=== PATIENT | male | born 1945 | race Caucasian/White ===

== ENCOUNTER → 2016-06-20 | Outpatient (CLI) | payer MEDICARE, BC ==
[2016-06-20 12:38] LABS: ALBUMIN 3.8 GM/DL (3.2-5.2); ALBUMIN/GLOBULIN RATIO 1.27 (1.00-1.93); ALKALINE PHOSPHATASE 68 U/L (45-117); ALT/SGPT 16 U/L (12-78); AST/SGOT 12 U/L (15-37); BILIRUBIN,DIRECT < 0.1 MG/DL (0.0-0.2); BILIRUBIN,TOTAL 0.3 MG/DL (0.2-1.0); CHOLESTEROL LEVEL 210 MG/DL (<200); TOTAL PROTEIN 6.8 GM/DL (6.4-8.2); TRIGLYCERIDES LEVEL 161 MG/DL (<150)
[2016-06-20 19:36] LABS: ANION GAP 8 MEQ/L (8-16); BLOOD UREA NITROGEN 27 MG/DL (7-18); CALCIUM LEVEL 8.5 MG/DL (8.8-10.2); CARBON DIOXIDE LEVEL 26 MEQ/L (21-32); CHLORIDE LEVEL 107 MEQ/L (98-107); CREATININE FOR GFR 1.08 MG/DL (0.70-1.30); GLOMERULAR FILTRATION RATE > 60.0 (>42); GLUCOSE, FASTING 136 MG/DL (83-110); POTASSIUM SERUM 4.2 MEQ/L (3.5-5.1); SODIUM LEVEL 141 MEQ/L (136-145)
== END ==
LOC: M LAB 11:28
PROVIDERS: ATTEND Internal Medicine Cardiovascular Disease
DX: E78.00 Pure hypercholesterolemia, unspecified (principal); I11.9 Hypertensive heart disease without heart failure; R35.1 Nocturia
CPT/HCPCS: 36415; 80061; 80069; 80076; G0103

== ENCOUNTER → 2016-10-19 | Outpatient (CLI) | payer MEDICARE, BC ==
--- NOTE | 2016-10-26 20:26 | SLEEPCENT ---
DATE OF PROCEDURE: 10/19/2016 ORDERED BY: Dr. Edmar Lawrence Nocturnal polysomnography was performed for evaluation of sleep apnea syndrome symptoms in this patient with a history of excessive somnolence. 8 hours and 31 minutes of data were reviewed. There were 323 minutes of sleep identified. Sleep latency was prolonged at 110 minutes. Rapid eye movement (REM) latency was also prolonged at 234 minutes. Sleep architecture initially showed some poor progression. There was some fragmentation. One long REM period was appreciated between 2:45 and 4:15. The EKG showed a sinus rhythm throughout. Occasional unifocal ventricular ectopic beats were seen. Average heart rate 63 beats per minute. EEG showed a fairly normal wave forms for wake and sleep stages. No focal events were identified. There were 31 respiratory events identified of 10 seconds in duration or greater for an apnea-hypopnea index of 5.7. The events were primarily obstructive. More frequent in the prone and supine positions. No clear stage relationship was appreciated. Snoring was also noted particularly early in the study and respiratory related arousal index was 3.9 with significant limb activity, three trains of 30 events and a limb movement arousal index of 7.8. The remaining measures of sleep physiology were normal. IMPRESSION: 1. Mild obstructive sleep apnea syndrome (G47.33). Apnea-hypopnea index 5.7. 2. Mild periodic limb movement disorder (G47.61). Limb movement arousal index is 7.8. RECOMMENDATIONS: Sleep position retraining for avoidance of the supine posture may be helpful to reduce the frequency or respiratory events. If symptoms persist, a return to the sleep disorder center for pressure therapy would be indicated. Given the frequency of limb activity, pending outcome of treatment of respiratory events interventions to reduce the frequency arousal from limb activity may also be helpful.
== END ==
LOC: M SLEEP 19:37
PROVIDERS: ATTEND Internal Medicine Pulmonary Disease
DX: G47.30 Sleep apnea, unspecified (principal); R40.0 Somnolence; I10 Essential (primary) hypertension

== ENCOUNTER → 2017-08-08 | Outpatient (REF) | payer MEDICARE, BC ==
[2017-08-08 12:50] LABS: IRON (FE) 74 UG/DL (65-175); PERCENT SATURATION 15.7 % (19.7-50.0); TOTAL IRON BINDING CAPACITY 471 UG/DL (250-450)
== END ==
LOC: M LAB REF 12:21
DX: D64.9 Anemia, unspecified (principal)
CPT/HCPCS: 83550

== ENCOUNTER → 2019-03-19 | Outpatient (REF) | payer MEDICARE, BC ==
[2019-03-19 13:36] LABS: PERCENT SATURATION 14.9 % (19.7-50.0)
== END ==
LOC: M LAB REF 13:16
PROVIDERS: ATTEND Internal Medicine
DX: D64.9 Anemia, unspecified (principal)

== ENCOUNTER → 2020-02-17 | Outpatient (REF) | payer MEDICARE, BC | LOC: M LAB REF 17:10 | PROVIDERS: ATTEND Physician Assistant | DX: C44.509 Unspecified malignant neoplasm of skin of other part of trunk (principal) ==

== ENCOUNTER → 2021-07-08 | Outpatient (REF) | payer MEDICARE, BC ==
[~2021-07-08] MED LIST: ACTO30TA15 PO; ASPI81TA26 PO; FLOM0.4C39 PO; GABA-282 PO; JANU100T; LIPI20TA PO; LOSA50TA28; METF-838; METO50TA7 PO; PARO25TA11; [UNRECOGNIZED DRUG - CODE] EX
== END ==
LOC: M SFHCDERM 19:03
PROVIDERS: ATTEND Dermatology
DX: C44.509 Unspecified malignant neoplasm of skin of other part of trunk (principal); L40.8 Other psoriasis

== ENCOUNTER 2021-07-27 10:22 | Outpatient (RCR) | payer MEDICARE, BC | END 2021-07-31 | LOC: M ONCR 10:22 | PROVIDERS: ATTEND General Practice | DX: C44.89 Other specified malignant neoplasm of overlapping sites of skin (principal) ==

== ENCOUNTER → 2021-08-31 | Outpatient (RCR) | payer MEDICARE, BC | LOC: M ONCR 08-02 11:16 | PROVIDERS: ATTEND General Practice | DX: C44.89 Other specified malignant neoplasm of overlapping sites of skin (principal) ==

== ENCOUNTER → 2021-09-30 | Outpatient (RCR) | payer MEDICARE, BC | LOC: M ONCR 09-01 08:27 | PROVIDERS: ATTEND General Practice | DX: C44.89 Other specified malignant neoplasm of overlapping sites of skin (principal) ==

== ENCOUNTER 2021-10-12 08:27 | Outpatient (RCR) | payer MEDICARE, BC ==
[~2021-10-12 08:27] MED LIST changes: -JANU100T; +JANU100T PO; +LATA0.0015; -METF-838; +METF-838 PO; +METO1TAB33 PO; +TAMS1CAP17
== END 2021-10-31 ==
LOC: M ONCR 08:27
PROVIDERS: ATTEND General Practice
DX: C44.89 Other specified malignant neoplasm of overlapping sites of skin (principal)

== ENCOUNTER 2021-10-15 06:12 | Day surgery (SDC) | payer MEDICARE, BC ==
[~2021-10-15] VITALS: Ht 167.6 cm; Wt 70.3 kg
[~2021-10-15 06:12] MED LIST changes: +LIDOCAINE W/EPINEPHRINE 1% 20ML VIAL ID ONE; +SODIUM BICARBONATE 8.4% INJ 50MEQ 50 ML VIAL ID ONE
[2021-10-15] MEDS ORDERED: BACITRACIN OINTMENT 30GM TUBE As Ordered ONE (07:09)
[2021-10-15 08:15] VITALS: BP 173/80
== END 2021-10-15 08:40 | disposition home or self-care (01) ==
LOC: M SDC 06:12
PROVIDERS: ATTEND Orthopaedic Surgery Hand Surgery
DX: M65.352 Trigger finger, left little finger (principal)

== ENCOUNTER → 2021-10-22 | Outpatient (CLI) | payer MEDICARE, BC ==
[~2021-10-22] MED LIST changes: -LIDOCAINE W/EPINEPHRINE 1% 20ML VIAL ID ONE; -SODIUM BICARBONATE 8.4% INJ 50MEQ 50 ML VIAL ID ONE
== END ==
LOC: M ONCR 08:48
PROVIDERS: ATTEND General Practice
DX: N50.812 Left testicular pain (principal); L98.8 Other specified disorders of the skin and subcutaneous tissue

== ENCOUNTER 2021-11-04 13:39 | Inpatient (IN) | payer MEDICARE, BC ==
[~2021-11-04] VITALS: Ht 167.6 cm; Wt 70.0 kg
[2021-11-04] VITALS (7 sets, daily range): BP systolic 158–175; BP diastolic 84–91
[~2021-11-04 13:39] MED LIST changes: +LIDOCAINE 1% MDV 20ML VIAL As Ordered ONE; +LIDOCAINE 2% 100MG/5ML SDV (FOR ANES.) As Ordered ONE; -LOSA50TA28; +LOSA50TA28 PO; +MIDAZOLAM INJ 2MG/2ML VIAL (J2250 PER 1MG) As Ordered ONE; -TAMS1CAP17; +TAMS1CAP17 PO; +fentaNYL 100 MCG/2 ML INJECTION As Ordered ONE; +propofoL 200 MG/20 ML VIAL As Ordered ONE
[2021-11-04] MEDS ORDERED: CEPH500C PO (13:55)
[2021-11-04] MEDS ORDERED: OXYC1TAB23 PO (13:55)
[2021-11-04] MEDS ORDERED: ceFAZolin SOD 2 GM in IV 1 EA IV ONE (14:05)
[2021-11-04] MEDS ORDERED: INSULIN LISPRO (NovoLOG) PER UNIT SC PRN (14:15)
[2021-11-04] MEDS ORDERED: LR 1,000 ML IV SCH ×3 (14:15→16:25)
[2021-11-04] MEDS ORDERED: ceFAZolin 2 GM/D5W 50 ML IV BAG (J0690 PER 500MG) As Ordered ONE (14:32)
[2021-11-04] MEDS ORDERED: LABETALOL 100MG/20ML VIAL As Ordered ONE (15:16)
[2021-11-04] MEDS ORDERED: oxyCODONE 5MG TAB PO PRN ×2 (15:30→18:40)
[2021-11-04] MEDS ORDERED: ONDANSETRON 4MG 2ML VIAL IV PRN (15:30)
[2021-11-04] MEDS: fentaNYL 100 MCG/2 ML INJECTION IV PRN ×4 (16:08→16:26)
[2021-11-04] MEDS ORDERED: MOM 30ML SUSPENSION UDC PO PRN (16:45)
[2021-11-04] MEDS ORDERED: ACETAMINOPHEN TAB 650MG DOSE (2X325MG) PO PRN (16:45)
[2021-11-04] MEDS ORDERED: MAALOX 30 ML SUSP *UDC PO PRN (16:45)
[2021-11-04] MEDS ORDERED: VANCOMYCIN HCL 1,000 MG, VIAL MATE ADAPTER 1 EACH in NS 250 ML IV SCH (16:55)
[2021-11-04] MEDS: PIPERACILLIN/TAZOBACTAM SOD 4.5 GM in D5W MINI-BAG PLUS 50 ML IV SCH (18:11)
[2021-11-04] MEDS ORDERED: GLUCOSE 4GM CHEW TABLET PO PRN (18:40)
[2021-11-04] MEDS ORDERED: GLUCAGON INJ 1MG VIAL SC PRN (18:40)
[2021-11-04] MEDS ORDERED: MORPHINE 2 MG/ML 1ML VIAL IV PRN (18:40)
[2021-11-04] MEDS ORDERED: DEXTROSE 50% 50 ML SYRINGE IV PRN (18:40)
[2021-11-04] MEDS ORDERED: PARO25TA11 PO (19:05)
[2021-11-04] MEDS ORDERED: AZOP0.2S OU (19:05)
[2021-11-04] MEDS ORDERED: PIOG1TAB55 PO (19:05)
[2021-11-04] MEDS ORDERED: BRIM1OPD OU (19:05)
[2021-11-04] MEDS ORDERED: TAMS1CAP17 PO (19:05)
[2021-11-04] MEDS ORDERED: ATOR40TA75 PO (19:07)
[2021-11-04] MEDS ORDERED: HOME MED LIST COMPLETE! XX SCH (19:10)
[2021-11-04] MEDS: INSULIN LISPRO (NovoLOG) PER UNIT SC SCH (20:25)
[2021-11-04] MEDS ORDERED: VANCOMYCIN HCL 750 MG, VIAL MATE ADAPTER 1 EACH in D5W 250 ML IV ONE ×2 (21:00→22:00)
[2021-11-04] MEDS ORDERED: MORPHINE 4 MG/ML 1ML VIAL/SYRINGE IV PRN (21:40)
[2021-11-04] MEDS: LOSARTAN 50MG TABLET PO SCH (22:26)
[2021-11-04] MEDS: GABAPENTIN 300 MG CAP PO SCH (22:26)
[2021-11-04] MEDS: ATORVASTATIN 20 MG TAB PO SCH (22:26)
[2021-11-04] MEDS: METOPROLOL SUCC (TopROL XL) 50MG **XL** TAB PO SCH (22:27)
[2021-11-04] MEDS: PARoxetine 25MG CR TAB (PAXIL CR) PO SCH (22:33)
[2021-11-04] MEDS ORDERED: ACETAMINOPHEN 1000MG 100ML IV BTL (OFIRMEV) (J0131 PER 10MG) IV ONE (23:00)
[2021-11-05] MEDS: PIPERACILLIN/TAZOBACTAM SOD 4.5 GM in D5W MINI-BAG PLUS 50 ML IV SCH ×5 (00:53→23:58)
[2021-11-05 02:00] VITALS: BP 163/88
[2021-11-05 06:00] VITALS: BP 124/69
[2021-11-05 07:17] LABS: BASO # 0.1 10^3/uL (0.0-0.2); BASO % 0.8 % (0.0-1.0); EOS # 0.3 10^3/uL (0.0-0.5); EOS % 3.1 % (0.0-3.0); HEMATOCRIT 31.3 % (42.0-52.0); HEMOGLOBIN 10.4 g/dl (13.5-17.5); LYMPH % 10.9 % (24.0-44.0); MEAN CORPUSCULAR HEMOGLOBIN 31.1 pg (27.0-33.0); MEAN CORPUSCULAR HGB CONC 33.2 g/dl (32.0-36.5); MEAN CORPUSCULAR VOLUME 93.7 fl (80.0-96.0); MONO % 10.6 % (2.0-8.0); NEUTROPHILS # 6.7 10^3/uL (1.5-8.5); NEUTROPHILS % 73.9 % (36.0-66.0); PLATELET COUNT, AUTOMATED 339 10^3/uL (150-450); RED BLOOD COUNT 3.34 10^6/uL (4.30-6.10)
[2021-11-05 07:47] LABS: ALBUMIN 2.6 GM/DL (3.2-5.2); ALT/SGPT 19 U/L (12-78); BILIRUBIN,TOTAL 0.3 MG/DL (0.2-1.0); BLOOD UREA NITROGEN 21 MG/DL (7-18); C REACTIVE PROTEIN QUANTITATIV 6.46 MG/DL (0.00-0.30); CALCIUM LEVEL 8.6 MG/DL (8.8-10.2); CARBON DIOXIDE LEVEL 28 MEQ/L (21-32); CHLORIDE LEVEL 101 MEQ/L (98-107); CREATININE FOR GFR 1.15 MG/DL (0.70-1.30); GLOMERULAR FILTRATION RATE > 60.0 (>42); GLUCOSE, FASTING 247 MG/DL (70-100); MAGNESIUM LEVEL 1.7 MG/DL (1.8-2.4); POTASSIUM SERUM 4.2 MEQ/L (3.5-5.1); SODIUM LEVEL 136 MEQ/L (136-145)
[2021-11-05 08:44] LABS: ERYTHROCYTE SEDIMENTATION RATE 67 mm/hr (0-20)
[2021-11-05] MEDS ORDERED: TAMSULOSIN 0.4 MG CAP PO SCH (09:00)
[2021-11-05] MEDS: MAG SULF 1GM/100ML (MAG RUN) 1 GM in IV 1 EA IV SCH ×2 (09:01→10:11)
[2021-11-05] MEDS: ASPIRIN 81MG ENTERIC TABLET PO SCH (09:01)
[2021-11-05] MEDS: PARoxetine 25MG CR TAB (PAXIL CR) PO SCH ×2 (09:01→20:49)
[2021-11-05] MEDS: BRINZOLAMIDE 1% OPHTH SUSP (AZOPT) 10ML OU SCH ×2 (09:03→20:51)
[2021-11-05] MEDS: INSULIN LISPRO (NovoLOG) PER UNIT SC SCH ×4 (09:03→20:29)
[2021-11-05] MEDS: BRIMONIDINE 0.1% OPHTH SOLN 5 ML OU SCH ×2 (09:03→20:51)
[2021-11-05] MEDS: KETOROLAC 30 MG/ML 1ML VIAL IV PRN ×2 (09:04→20:49)
[2021-11-05 10:00] VITALS: BP 130/69
[2021-11-05] MEDS: VANCOMYCIN HCL 500 MG in D5W MINI-BAG PLUS 100 ML IV SCH (11:17)
[2021-11-05] MEDS: VANCOMYCIN HCL 750 MG, VIAL MATE ADAPTER 1 EACH in D5W 250 ML IV SCH (12:21)
[2021-11-05 14:00] VITALS: BP 127/79
[2021-11-05 18:00] VITALS: BP 142/80
[2021-11-05] MEDS: GABAPENTIN 300 MG CAP PO SCH (20:49)
[2021-11-05] MEDS: LOSARTAN 50MG TABLET PO SCH (20:50)
[2021-11-05] MEDS: ATORVASTATIN 20 MG TAB PO SCH (20:50)
[2021-11-05] MEDS: METOPROLOL SUCC (TopROL XL) 50MG **XL** TAB PO SCH (20:50)
[2021-11-05 21:39] VITALS: BP 150/84
[2021-11-06 02:00] VITALS: BP 148/86
[2021-11-06] MEDS: PIPERACILLIN/TAZOBACTAM SOD 4.5 GM in D5W MINI-BAG PLUS 50 ML IV SCH (05:31)
[2021-11-06 06:03] VITALS: BP 170/84
[2021-11-06 06:28] LABS: BASO # 0.1 10^3/uL (0.0-0.2); BASO % 1.2 % (0.0-1.0); EOS # 0.5 10^3/uL (0.0-0.5); EOS % 7.1 % (0.0-3.0); HEMATOCRIT 32.2 % (42.0-52.0); HEMOGLOBIN 10.5 g/dl (13.5-17.5); LYMPH # 1.1 10^3/uL (1.5-5.0); LYMPH % 14.8 % (24.0-44.0); MEAN CORPUSCULAR HEMOGLOBIN 30.2 pg (27.0-33.0); MEAN CORPUSCULAR HGB CONC 32.6 g/dl (32.0-36.5); MEAN CORPUSCULAR VOLUME 92.5 fl (80.0-96.0); MONO # 0.7 10^3/uL (0.0-0.8); MONO % 9.1 % (2.0-8.0); NEUTROPHILS % 67.3 % (36.0-66.0); PLATELET COUNT, AUTOMATED 375 10^3/uL (150-450); RED BLOOD COUNT 3.48 10^6/uL (4.30-6.10); WHITE BLOOD COUNT 7.4 10^3/uL (4.0-10.0)
[2021-11-06 07:00] VITALS: BP 174/92
[2021-11-06 07:07] LABS: ALBUMIN 2.6 GM/DL (3.2-5.2); BILIRUBIN,TOTAL 0.4 MG/DL (0.2-1.0); CALCIUM LEVEL 8.7 MG/DL (8.8-10.2); CREATININE FOR GFR 1.27 MG/DL (0.70-1.30); GLOMERULAR FILTRATION RATE 58.7 (>42); MAGNESIUM LEVEL 2.1 MG/DL (1.8-2.4); POTASSIUM SERUM 4.3 MEQ/L (3.5-5.1)
[2021-11-06 07:12] LABS: ERYTHROCYTE SEDIMENTATION RATE 65 mm/hr (0-20)
[2021-11-06] MEDS ORDERED: amLODIPine 5 MG TAB PO ONE (08:00)
[2021-11-06] MEDS: PARoxetine 25MG CR TAB (PAXIL CR) PO SCH ×2 (08:12→20:28)
[2021-11-06] MEDS: ASPIRIN 81MG ENTERIC TABLET PO SCH (08:12)
[2021-11-06] MEDS: VANCOMYCIN HCL 750 MG, VIAL MATE ADAPTER 1 EACH in D5W 250 ML IV SCH (08:13)
[2021-11-06] MEDS: TAMSULOSIN 0.4 MG CAP PO SCH (08:13)
[2021-11-06] MEDS: INSULIN LISPRO (NovoLOG) PER UNIT SC SCH ×4 (08:13→20:30)
[2021-11-06] MEDS: BRIMONIDINE 0.1% OPHTH SOLN 5 ML OU SCH ×2 (08:20→20:30)
[2021-11-06] MEDS: BRINZOLAMIDE 1% OPHTH SUSP (AZOPT) 10ML OU SCH ×2 (08:20→20:30)
[2021-11-06] MEDS: VANCOMYCIN HCL 500 MG in D5W MINI-BAG PLUS 100 ML IV SCH (09:47)
[2021-11-06 10:43] LABS: VANCOMYCIN RANDOM 12.8 UG/ML
[2021-11-06 14:00] VITALS: BP 136/70
[2021-11-06] MEDS: KETOROLAC 30 MG/ML 1ML VIAL IV PRN (15:50)
[2021-11-06 20:03] VITALS: BP 162/88
[2021-11-06] MEDS: GABAPENTIN 300 MG CAP PO SCH (20:28)
[2021-11-06 20:29] VITALS: BP 162/88
[2021-11-06] MEDS: METOPROLOL SUCC (TopROL XL) 50MG **XL** TAB PO SCH (20:29)
[2021-11-06] MEDS: LOSARTAN 50MG TABLET PO SCH (20:29)
[2021-11-06] MEDS: ATORVASTATIN 20 MG TAB PO SCH (20:30)
[2021-11-07 05:41] VITALS: BP 165/91
[2021-11-07 06:35] LABS: BASO # 0.1 10^3/uL (0.0-0.2); BASO % 1.2 % (0.0-1.0); EOS # 0.5 10^3/uL (0.0-0.5); HEMATOCRIT 31.3 % (42.0-52.0); HEMOGLOBIN 10.5 g/dl (13.5-17.5); LYMPH # 1.3 10^3/uL (1.5-5.0); LYMPH % 19.2 % (24.0-44.0); MEAN CORPUSCULAR HEMOGLOBIN 30.9 pg (27.0-33.0); MEAN CORPUSCULAR HGB CONC 33.5 g/dl (32.0-36.5); MEAN CORPUSCULAR VOLUME 92.1 fl (80.0-96.0); MONO # 0.8 10^3/uL (0.0-0.8); MONO % 12.2 % (2.0-8.0); NEUTROPHILS # 4.1 10^3/uL (1.5-8.5); PLATELET COUNT, AUTOMATED 376 10^3/uL (150-450); WHITE BLOOD COUNT 6.9 10^3/uL (4.0-10.0)
[2021-11-07 06:59] LABS: ERYTHROCYTE SEDIMENTATION RATE 65 mm/hr (0-20)
[2021-11-07 07:13] LABS: ALBUMIN 2.8 GM/DL (3.2-5.2); ALT/SGPT 30 U/L (12-78); BILIRUBIN,TOTAL 0.4 MG/DL (0.2-1.0); BLOOD UREA NITROGEN 24 MG/DL (7-18); C REACTIVE PROTEIN QUANTITATIV 4.88 MG/DL (0.00-0.30); CALCIUM LEVEL 8.4 MG/DL (8.8-10.2); CARBON DIOXIDE LEVEL 26 MEQ/L (21-32); CHLORIDE LEVEL 107 MEQ/L (98-107); CREATININE FOR GFR 1.06 MG/DL (0.70-1.30); GLOMERULAR FILTRATION RATE > 60.0 (>42); GLUCOSE, FASTING 192 MG/DL (70-100); MAGNESIUM LEVEL 1.9 MG/DL (1.8-2.4); POTASSIUM SERUM 4.1 MEQ/L (3.5-5.1); SODIUM LEVEL 140 MEQ/L (136-145); TOTAL PROTEIN 6.3 GM/DL (6.4-8.2)
[2021-11-07] MEDS: PARoxetine 25MG CR TAB (PAXIL CR) PO SCH (08:31)
[2021-11-07] MEDS: ASPIRIN 81MG ENTERIC TABLET PO SCH (08:31)
[2021-11-07] MEDS: TAMSULOSIN 0.4 MG CAP PO SCH (08:32)
[2021-11-07] MEDS: INSULIN LISPRO (NovoLOG) PER UNIT SC SCH ×2 (08:32→12:00)
[2021-11-07] MEDS: VANCOMYCIN HCL 750 MG, VIAL MATE ADAPTER 1 EACH in D5W 250 ML IV SCH (08:32)
[2021-11-07] MEDS: BRIMONIDINE 0.1% OPHTH SOLN 5 ML OU SCH (08:33)
[2021-11-07] MEDS: BRINZOLAMIDE 1% OPHTH SUSP (AZOPT) 10ML OU SCH (08:33)
[2021-11-07] MEDS: VANCOMYCIN HCL 500 MG in D5W MINI-BAG PLUS 100 ML IV SCH (09:48)
[2021-11-07 12:37] VITALS: BP 134/74
[2021-11-07] MEDS ORDERED: OXYC-517 PO (12:37)
[2021-11-07] MEDS ORDERED: ACID1CAP5 PO (12:37)
[2021-11-07] MEDS ORDERED: ACET1TAB55 PO (12:37)
[2021-11-07] MEDS ORDERED: AMOX875T2 PO (12:37)
== END 2021-11-07 13:49 | disposition home or self-care (01) | DRG 857 ==
LOC: M SDC 13:39 → UNDOADMOB 16:42 → M MSPAV 16:42 → OBSVTOIN 16:51 → M MSPAV 16:51
PROVIDERS: ADMIT Family Medicine; ATTEND Family Medicine
PROC: 0PDQ0ZZ Extraction of Left Metacarpal, Open Approach (ICD-10-PCS; principal; 2021-11-04 13:30)
DX: T81.49XA Infection following a procedure, other surgical site, initial encounter (principal); L03.114 Cellulitis of left upper limb; M96.89 Other intraoperative and postprocedural complications and disorders of the musculoskeletal system; E78.5 Hyperlipidemia, unspecified; Z95.5 Presence of coronary angioplasty implant and graft; I25.10 Atherosclerotic heart disease of native coronary artery without angina pectoris; I10 Essential (primary) hypertension; E11.9 Type 2 diabetes mellitus without complications; Z95.2 Presence of prosthetic heart valve; Z85.51 Personal history of malignant neoplasm of bladder; G25.81 Restless legs syndrome; E83.42 Hypomagnesemia; M88.9 Osteitis deformans of unspecified bone; Z79.899 Other long term (current) drug therapy; Z79.82 Long term (current) use of aspirin; Z87.891 Personal history of nicotine dependence; M65.142 Other infective (teno)synovitis, left hand; Y83.8 Other surgical procedures as the cause of abnormal reaction of the patient, or of later complication, without mention of misadventure at the time of the procedure

== ENCOUNTER → 2021-11-15 | Outpatient (REF) | payer MEDICARE, BC ==
[~2021-11-15] MED LIST changes: +ACET1TAB55 PO; +ACID1CAP5 PO; +AMOX875T2 PO; +ATOR40TA75 PO; +AZOP0.2S OU; +BRIM1OPD OU; +CEPH500C PO; -LIDOCAINE 1% MDV 20ML VIAL As Ordered ONE; -LIDOCAINE 2% 100MG/5ML SDV (FOR ANES.) As Ordered ONE; -MIDAZOLAM INJ 2MG/2ML VIAL (J2250 PER 1MG) As Ordered ONE; +OXYC-517 PO; +OXYC1TAB23 PO; +PARO25TA11 PO; +PIOG1TAB55 PO; -fentaNYL 100 MCG/2 ML INJECTION As Ordered ONE; -propofoL 200 MG/20 ML VIAL As Ordered ONE
[2021-11-15 13:06] LABS: PERCENT SATURATION 15.9 % (19.7-50.0)
== END ==
LOC: M LAB REF 11:26
PROVIDERS: ATTEND Internal Medicine
DX: D64.9 Anemia, unspecified (principal)

== ENCOUNTER → 2021-12-08 | Outpatient (CLI) | payer MEDICARE, BC | LOC: M ONCR 08:59 | PROVIDERS: ATTEND General Practice | DX: Z08 Encounter for follow-up examination after completed treatment for malignant neoplasm (principal); L59.8 Other specified disorders of the skin and subcutaneous tissue related to radiation; Z92.3 Personal history of irradiation ==

== ENCOUNTER → 2022-01-19 | Outpatient (REF) | payer MEDICARE, BC ==
[2022-01-19 17:25] LABS: PERCENT SATURATION 13.9 % (19.7-50.0)
== END ==
LOC: M LAB REF 16:16
PROVIDERS: ATTEND Internal Medicine
DX: D64.9 Anemia, unspecified (principal)

== ENCOUNTER → 2022-04-14 | Outpatient (CLI) | payer MEDICARE, BC | LOC: M ONCR 09:05 | PROVIDERS: ATTEND Radiology Radiation Oncology | DX: Z08 Encounter for follow-up examination after completed treatment for malignant neoplasm (principal); Z85.828 Personal history of other malignant neoplasm of skin; Z85.51 Personal history of malignant neoplasm of bladder; Z79.82 Long term (current) use of aspirin; Z79.84 Long term (current) use of oral hypoglycemic drugs; Z79.899 Other long term (current) drug therapy; Z87.891 Personal history of nicotine dependence; Z92.3 Personal history of irradiation ==

== ENCOUNTER → 2022-05-11 | Outpatient (REF) | payer MEDICARE, BC | LOC: M SFHCDERM 13:50 | PROVIDERS: ATTEND Physician Assistant | DX: C44.529 Squamous cell carcinoma of skin of other part of trunk (principal) ==

== ENCOUNTER → 2022-07-20 | Outpatient (REF) | payer MEDICARE, BC ==
[2022-07-20 14:06] LABS: PERCENT SATURATION 10.7 % (19.7-50.0)
== END ==
LOC: M LAB REF 12:23
PROVIDERS: ATTEND Internal Medicine
DX: D50.9 Iron deficiency anemia, unspecified (principal)